=== PATIENT | female | born 1985 | race Caucasian/White ===

== ENCOUNTER → 2017-01-13 | Outpatient (CLI) | payer OTHER ==
--- NOTE | 2017-01-14 12:00 | US ---
EXAMINATION TYPE: US OB >= 14 wk fetus DATE OF EXAM: 01/13/2017 4:52 PM COMPARISON: None CLINICAL HISTORY: Z34.8Encounter for supervision of normal Dates, no previous ultrasound wi th this TECHNIQUE: Transabdominal (TA) GESTATIONAL AGE / DATING Dates by LMP: (19 weeks/1 days) EDC: 06/08/2017 Dates by Current Scan: (17 weeks/0 days) EDC: 06/23/2017 SURVEY IUP: Single PLACENTA: Anterior PREVIA: No Previa EYDA: 12.3 cm Normal CERVICAL LENGTH (transabdominal: norm > 3.0cm): 3.8 cm BIOMETRY PRESENTATION: Vertex BPD: 3.5 cm 16 weeks / 6 days HC: 13.6 cm 17 weeks / 0 days AC: 11.6 cm 17 weeks / 3 days FL: 2.3 cm 16 weeks / 6 days ESTIMATED WEIGHT IN GRAMS: 181.2 grams ESTIMATED WEIGHT IN LBS/OZS: 0 lbs. 6 oz. HC/AC: 1.2 FL/AC: 19.5 HEART RATE: 149 bpm RHYTHM: Normal Live single IUP measuring 17 weeks 0 days. IMPRESSION: Single viable intrauterine corresponding to ultrasound age 17 weeks 0 days with estimated d ate of delivery June, limited survey
== END | disposition home or self-care (01) ==
LOC: RADUSWWP 16:21
PROVIDERS: ATTEND Obstetrics & Gynecology
DX: Z34.02 Encounter for supervision of normal first pregnancy, second trimester (principal); Z3A.17 17 weeks gestation of pregnancy
CPT/HCPCS: 76805

== ENCOUNTER → 2017-03-03 | Outpatient (CLI) | payer OTHER ==
--- NOTE | 2017-02-18 14:10 | US ---
EXAMINATION TYPE: US OB anatomy transabd DATE OF EXAM: 02/17/2017 4:25 PM COMPARISON: Previous study dated 01/13/2017. HISTORY: Z36 ENCOUNTER FOR ANTEN ATE SCREENING OF MOTHER Anatomy Scan TECHNIQUE: Transabdominal (TA) EXAM MEASUREMENTS: GESTATIONAL AGE / DATING Physician Established: (22 weeks/0 days) EDC: 06/23/2017 Dates by LMP: Unknown Dates by First Scan: (22 weeks/0 days) EDC: 06/23/2017 Dates by Current Scan for: (21 weeks/2 days) EDC: 06/28/2017 SURVEY IUP: Single PLACENTA: Anterior PREVIA: No previa EYAD: 14.3 cm Normal CERVICAL LENGTH (transabdominal: norm > 3.0cm): 4.3 cm BIOMETRY PRESENTATION: Vertex BPD: 5.1 cm 21 weeks / 3 days HC: 19.4 cm 21 weeks / 4 days AC: 16.1 cm 21 weeks / 1 days FL: 3.7 cm 21 weeks / 6 days ESTIMATED WEIGHT IN GRAMS: 430 grams ESTIMATED WEIGHT IN LBS/OZS: 0 lbs. 15 oz. WEIGHT PERCENTAGE BASED ON ESTABLISHED DATE: 21.8 % HC/AC: 1.21 Normal FL/AC: 23 Abnormal HEART RATE: 161 bpm RHYTHM: Normal ANATOMY SEEN (within normal limits): * Lateral Vent (< 1 cm) 0.4 cm * Cisterna Magna (< 1.1 cm) 0.3 cm * Nuchal Fold (< 0.6 cm) 0.3 cm * Cerebellum (varies with age) 2.2 cm Choroid Plexus (bilateral) Midline Falx Cavus Septi Pellucidi Four Chamber Heart Outflow tracts: LVOT/RVOT Stomach Situs Nose / Lips Diaphragm Kidneys (bilateral) Bladder Cord Insert Three Vessel Cord Arms (bilateral) Legs (bilateral) ANATOMY NOT SEEN: Longitudinal Spine - Fetus Spine Down Transverse Spine - Fetus Spine Down Pt coming for OB callback on March 03 at 11:00 for spine images [place] 2nd tech Single, viable IUP, Growth parameters wnl, No abnormality seen at this time IMPRESSION: HUIZAR FETUS PRESENT IN A VERTEX LIE WITH A GESTATIONAL AGE OF 21 WEEKS 2 DAYS +/- 2 WEEKS. ESTIMA TANIA DATE OF CONFINEMENT BASED ON THIS EXAMINATION IS 06/28/2017.
--- NOTE | 2017-03-03 12:06 | US ---
EXAMINATION TYPE: US OB Call Back DATE OF EXAM: 03/03/2017 COMPARISON: NONE CLINICAL HISTORY: Z34.8Encounter for supervision of normal . GESTATIONAL AGE / DATING Dates by Initial Survey Scan: (24 weeks/0 days) EDC: 06/23/17 HEART RATE: 157 bpm RHYTHM: Normal ANATOMY SEEN (second anatomic survey look): Longitudinal Spine: WNL Transverse Spine: WNL IMPRESSION: LIMITED EXAMINATION TO ASSESS THE SPINE DEMONSTRATING NO SPINAL ABNORMALITY.
== END | disposition home or self-care (01) ==
LOC: RADUSWWP 02-17 15:50
PROVIDERS: ATTEND Obstetrics & Gynecology
DX: Z36 Encounter for antenatal screening of mother (principal); Z3A.21 21 weeks gestation of pregnancy
CPT/HCPCS: 76811

== ENCOUNTER 2017-04-29 18:20 | Emergency (ER) | payer OTHER ==
[2017-04-29 18:34] VITALS: BP 162/78; PULSE 73; RESP 18; TEMP 98
== END 2017-04-29 19:03 | disposition home or self-care (01) ==
LOC: EC 18:20
DX: Z02.9 Encounter for administrative examinations, unspecified (principal)

== ENCOUNTER → 2017-05-16 | Outpatient (CLI) | payer OTHER ==
--- NOTE | 2017-05-16 13:07 | US ---
EXAMINATION TYPE: US OB >= 14 wk fetus DATE OF EXAM: 05/16/2017 COMPARISON: US CLINICAL HISTORY: O99.213 Obesity Complications In PregnancyLGA, 4, para 3, miscarriage 1 TECHNIQUE: Transabdominal (TA) GESTATIONAL AGE / DATING Physician Established: (34 weeks/4 days) EDC: 06/23/2017 Dates by LMP: Unknown Dates by First Scan: (34 weeks/4 days) EDC: 06/23/2017 Dates by Current Scan: (34 weeks/4 days) EDC: 06/23/2017 SURVEY IUP: Single PLACENTA: Anterior, multiple hypoechoic areas throughout placenta with largest measuring 2.8cm PREVIA: No Previa EYAD: 13.3 cm Normal CERVICAL LENGTH (transabdominal: norm > 3.0cm): 3.4 cm BIOMETRY PRESENTATION: Vertex BPD: 8.6 cm 34 weeks / 3 days HC: 31.1 cm 34 weeks / 6 days AC: 30.7 cm 34 weeks / 5 days FL: 6.9 cm 35 weeks / 2 days ESTIMATED WEIGHT IN GRAMS: 2529 grams ESTIMATED WEIGHT IN LBS/OZS: 5 lbs. 9 oz. WEIGHT PERCENTAGE BASED ON ESTABLISHED DATES: 53% HC/AC: 1.01 Normal FL/AC: 22.38 Normal HEART RATE: 141 bpm RHYTHM: Normal Viable single IUP measuring 34 weeks 4 days with a heart rate of 141bpm and an estimated delivery katerin e of 06/23/2017. IMPRESSION: Single viable intrauterine .
== END | disposition home or self-care (01) ==
LOC: RADUSWWP 12:24
PROVIDERS: ATTEND Obstetrics & Gynecology
DX: O99.213 Obesity complicating pregnancy, third trimester (principal); Z3A.34 34 weeks gestation of pregnancy
CPT/HCPCS: 76805

== ENCOUNTER 2017-12-15 21:03 | Emergency (ER) | payer OTHER ==
[2017-12-15 21:11] VITALS: RESP 18
[2017-12-15] MEDS ORDERED: METOCLOPRAMIDE 5 MG/ML 2 ML VIAL IVP STA (21:44)
[2017-12-15] MEDS ORDERED: SODIUM CHLORIDE 0.9% 1,000 ML IV STA ×2 (21:44)
[2017-12-15] MEDS ORDERED: diphenhydrAMINE 50 MG/ML 1 ML VIAL IVP STA (21:44)
--- NOTE | 2017-12-15 21:58 | ED ---
Abdominal Pain HPI - General Chief Complaint: Abdominal Pain Stated Complaint: and Abd pain Time Seen by Provider: 12/15/17 21:19 Source: patient, RN notes reviewed, old records reviewed Mode of arrival: ambulatory Limitations: no limitations - History of Present Illness Initial Comments: This patient is a 32-year-old female presents emergency Department chief complaint of left lower quadrant abdominal pain started today. Patient reports that she is currently 14 weeks . This is her fifth . She has not had any care to this point she has been taking some vitamins over. She states she is following up with Dr. Lewis in her appointment is in December. Patient states that she has 3 living children. She reports that her last child was born 6 months ago. Patient states that she's had no fever or chills. No nausea vomiting or diarrhea. She states that the pain just mainly in the left lower quadrant. No ultrasound or any other testing of been done for this . Patient states that she also has a mild headache at this time. - Related Data Home Medications Medication Instructions Recorded Confirmed Pnv No.95/Ferrous Fum/Folic AC 1 tab PO DAILY 12/15/17 12/15/17 [ Multivitamin Tablet] Allergies Allergy/AdvReac Type Severity Reaction Status Date / Time azithromycin Allergy Rash/Hives Verified 12/15/17 21:49 neomycin Allergy Rash/Hives Verified 12/15/17 21:49 Review of Systems ROS Statement: Those systems with pertinent positive or pertinent negative responses have been documented in the HPI. ROS Other: All systems not noted in ROS Statement are negative. Past Medical History Past Medical History: Asthma History of Any Multi-Drug Resistant Organisms: None Reported Past Surgical History: Tonsillectomy Additional Past Surgical History / Comment(s): tubes in ear, left ankle surgery , right foot Past Psychological History: Anxiety, Depression Smoking Status: Current every day smoker Past Alcohol Use History: Occasional Past Drug Use History: None Reported General Exam - General Exam Comments Initial Comments: Alert and well appearing 32 year old female, no distress. Limitations: no limitations General appearance: alert, in no apparent distress Head exam: Present: atraumatic, normocephalic, normal inspection Eye exam: Present: normal appearance, PERRL, EOMI. Absent: scleral icterus, conjunctival injection, periorbital swelling ENT exam: Present: normal exam, mucous membranes moist Neck exam: Present: normal inspection. Absent: tenderness, meningismus, lymphadenopathy Respiratory exam: Present: normal lung sounds bilaterally. Absent: respiratory distress, wheezes, rales, rhonchi, stridor Cardiovascular Exam: Present: regular rate, normal rhythm, normal heart sounds. Absent: systolic murmur, diastolic murmur, rubs, gallop, clicks GI/Abdominal exam: Present: soft, normal bowel sounds. Absent: distended, tenderness, guarding, rebound, rigid Psychiatric exam: Present: normal affect, normal mood Skin exam: Present: warm, dry, intact, normal color. Absent: rash Course Vital Signs 12/15/17 12/15/17 21:07 23:54 Temperature 98.3 F 98.4 F Pulse Rate 97 88 Respiratory 18 18 Rate Blood Pressure 134/73 130/71 O2 Sat by Pulse 99 100 Oximetry Medical Decision Making - Medical Decision Making This patient is a 32-year-old female presents emergency Department chief complaint of left lower quadrant abdominal pain started today. Patient reports that she is currently 14 weeks . This is her fifth . Patient is planning to see Dr. Lewis. Patient given IV fluids and labs obtained. Labs show no abnormalities. US shows an IUP measuring 17 weeks. No vaginal bleeding or fluid leaking. Patient will be discharged with follow up instructions. Pain is likely related to ligament stretching. - Lab Data Result diagrams: 12/15/17 22:06 12/15/17 22:06 Lab Results 12/15/17 12/15/17 12/15/17 Range/Units 22:00 22:06 22:06 WBC (3.8-10.6) k/uL RBC (3.80-5.40) m/uL Hgb (11.4-16.0) gm/dL Hct (34.0-46.0) % MCV (80.0-100.0) fL MCH (25.0-35.0) pg MCHC (31.0-37.0) g/dL RDW (11.5-15.5) % Plt Count (150-450) k/uL Neutrophils % % Lymphocytes % % Monocytes % % Eosinophils % % Basophils % % Neutrophils # (1.3-7.7) k/uL Lymphocytes # (1.0-4.8) k/uL Monocytes # (0-1.0) k/uL Eosinophils # (0-0.7) k/uL Basophils # (0-0.2) k/uL Anisocytosis Microcytosis Sodium 136 L (137-145) mmol/L Potassium 4.0 (3.5-5.1) mmol/L Chloride 102 (98-107) mmol/L Carbon Dioxide 25 (22-30) mmol/L Anion Gap 9 mmol/L BUN 10 (7-17) mg/dL Creatinine 0.60 (0.52-1.04) mg/dL Est GFR (CKD-EPI)AfAm >90 (>60 ml/min/1.73 sqM) Est GFR (CKD-EPI)NonAf >90 (>60 ml/min/1.73 sqM) Glucose 121 H (74-99) mg/dL Calcium 9.7 (8.4-10.2) mg/dL Total Bilirubin 0.3 (0.2-1.3) mg/dL AST 15 (14-36) U/L ALT 17 (9-52) U/L Alkaline Phosphatase 86 (38-126) U/L Total Protein 7.3 (6.3-8.2) g/dL Albumin 4.0 (3.5-5.0) g/dL Amylase 46 (30-110) U/L Lipase 43 (23-300) U/L Urine Color Light Yellow Urine Appearance Clear (Clear) Urine pH 6.5 (5.0-8.0) Ur Specific [place] 1.007 (1.001-1.035) Urine Protein Negative (Negative) Urine Glucose (UA) Negative (Negative) Urine Ketones Negative (Negative) Urine Blood Negative (Negative) Urine Nitrite Negative (Negative) Urine Bilirubin Negative (Negative) Urine Urobilinogen <2.0 (<2.0) mg/dL Ur Leukocyte Esterase Negative (Negative) Blood Type O Positive Blood Type Recheck No 12/15/17 Range/Units 22:06 WBC 12.9 H (3.8-10.6) k/uL RBC 4.40 (3.80-5.40) m/uL Hgb 11.1 L (11.4-16.0) gm/dL Hct 34.3 (34.0-46.0) % MCV 77.8 L (80.0-100.0) fL MCH 25.3 (25.0-35.0) pg MCHC 32.5 (31.0-37.0) g/dL RDW 19.9 H (11.5-15.5) % Plt Count 431 (150-450) k/uL Neutrophils % 76 % Lymphocytes % 18 % Monocytes % 4 % Eosinophils % 1 % Basophils % 0 % Neutrophils # 9.8 H (1.3-7.7) k/uL Lymphocytes # 2.4 (1.0-4.8) k/uL Monocytes # 0.5 (0-1.0) k/uL Eosinophils # 0.1 (0-0.7) k/uL Basophils # 0.0 (0-0.2) k/uL Anisocytosis Slight Microcytosis Moderate Sodium (137-145) mmol/L Potassium (3.5-5.1) mmol/L Chloride (98-107) mmol/L Carbon Dioxide (22-30) mmol/L Anion Gap mmol/L BUN (7-17) mg/dL Creatinine (0.52-1.04) mg/dL Est GFR (CKD-EPI)AfAm (>60 ml/min/1.73 sqM) Est GFR (CKD-EPI)NonAf (>60 ml/min/1.73 sqM) Glucose (74-99) mg/dL Calcium (8.4-10.2) mg/dL Total Bilirubin (0.2-1.3) mg/dL AST (14-36) U/L ALT (9-52) U/L Alkaline Phosphatase (38-126) U/L Total Protein (6.3-8.2) g/dL Albumin (3.5-5.0) g/dL Amylase (30-110) U/L Lipase (23-300) U/L Urine Color Urine Appearance (Clear) Urine pH (5.0-8.0) Ur Specific [place] (1.001-1.035) Urine Protein (Negative) Urine Glucose (UA) (Negative) Urine Ketones (Negative) Urine Blood (Negative) Urine Nitrite (Negative) Urine Bilirubin (Negative) Urine Urobilinogen (<2.0) mg/dL Ur Leukocyte Esterase (Negative) Blood Type Blood Type Recheck - Radiology Data Radiology results: report reviewed US shows gestational age of 17 weeks and 1 day. No complicating process. Disposition Clinical Impression: Abdominal pain affecting , 17 weeks gestation of Disposition: HOME SELF-CARE Condition: Good Instructions: Abdominal Pain in (ED) Additional Instructions: Patient has a take Tylenol for pain. Rest, increase fluid intake. Follow-up with Dr. Lewis. Return to emergency department if any alarming signs or symptoms occur. Referrals: Belkis Wright MD [Primary Care Provider] - 1-2 days Myrtle Lewis MD [STAFF PHYSICIAN] - 1-2 days Time of Disposition: 23:17
[2017-12-15 22:04] LABS: Appearance,Urine Clear (Clear); Bilirubin,Urine Negative (Negative); Blood,Urine Negative (Negative); Color,Urine Light Yellow; Glucose,Urine (UA) Negative (Negative); Ketones,Urine Negative (Negative); Leukocyte Esterase,Urine Negative (Negative); Nitrite,Urine Negative (Negative); PH, Urine 6.5 (5.0-8.0); Protein,Urine Negative (Negative); Specific Gravity,Urine 1.007 (1.001-1.035); Urobilinogen,Urine <2.0 mg/dL (<2.0)
[2017-12-15 22:15] LABS: Anisocytosis Slight; Basophils % (A) 0 %; Eosinophils # (A) 0.1 k/uL (0-0.7); Eosinophils % (A) 1 %; HCT 34.3 % (34.0-46.0); HGB 11.1 gm/dL (11.4-16.0); Lymphocytes # (A) 2.4 k/uL (1.0-4.8); Lymphocytes % (A) 18 %; MCH 25.3 pg (25.0-35.0); MCHC 32.5 g/dL (31.0-37.0); MCV 77.8 fL (80.0-100.0); Mean Platelet Volume 6.8; Microcytosis Moderate; Monocytes # (A) 0.5 k/uL (0-1.0); Monocytes % (A) 4 %; Neutrophils # (A) 9.8 k/uL (1.3-7.7); Neutrophils % (A) 76 %; Platelet Count 431 k/uL (150-450); RDW 19.9 % (11.5-15.5); WBC 12.9 k/uL (3.8-10.6)
[2017-12-15 22:32] LABS: ALT 17 U/L (9-52); AST 15 U/L (14-36); Alkaline Phosphatase 86 U/L (38-126); Amylase 46 U/L (30-110); Anion Gap 9 mmol/L; Blood Urea Nitrogen 10 mg/dL (7-17); Calcium 9.7 mg/dL (8.4-10.2); Carbon Dioxide 25 mmol/L (22-30); Chloride 102 mmol/L (98-107); Glucose 121 mg/dL (74-99); Lipase 43 U/L (23-300); Sodium 136 mmol/L (137-145); Total Bilirubin 0.3 mg/dL (0.2-1.3); Total Protein 7.3 g/dL (6.3-8.2)
--- NOTE | 2017-12-15 22:51 | US ---
EXAMINATION TYPE: US OB >= 14 wk fetus DATE OF EXAM: 12/15/2017 COMPARISON: No previous with this CLINICAL HISTORY: Pain TECHNIQUE: Transabdominal (TA) GESTATIONAL AGE / DATING Physician Established: Not yet established Dates by LMP: (15 weeks/4 days) EDC: 06/04/18 Dates by First Scan: No previous this is first scan Dates by Current Scan: (17 weeks/1 days) EDC: 05/24/18 Beta HCG (if available): Not available at this time SURVEY IUP: Single PLACENTA: Posterior PREVIA: No Previa EYAD: 14.6 cm CERVICAL LENGTH (transabdominal: norm > 3.0cm): 3.5 cm BIOMETRY PRESENTATION: Variable BPD: 3.6 cm 17 weeks / 1 days HC: 13.6 cm 17 weeks / 0 days AC: 11.3 cm 17 weeks / 1 days FL: 2.4 cm 17 weeks / 1 days ESTIMATED WEIGHT IN GRAMS: 182 grams ESTIMATED WEIGHT IN LBS/OZ: lbs. 6 oz. WEIGHT PERCENTAGE BASED ON ESTABLISHED DATES: 1st scan, dates probably inaccurate HC/AC: 1.2 FL/AC: 21.1 HEART RATE: 172 bpm RHYTHM: Normal MATERNAL WALL MEASUREMENT: 3.8 cm from skin to anterior uterine wall (if exam limited due to body hab itus). IMPRESSION: The ultrasound gestational age is 17 weeks and 1 day. I see no complicating process.
[2017-12-15 23:55] VITALS: BP 130/71; PULSE 88; TEMP 98.4
== END 2017-12-15 23:55 | disposition home or self-care (01) ==
LOC: EC 21:03
DX: O26.892 Other specified pregnancy related conditions, second trimester (principal); R10.32 Left lower quadrant pain; R51 Headache; O99.332 Smoking (tobacco) complicating pregnancy, second trimester; F17.200 Nicotine dependence, unspecified, uncomplicated; Z3A.17 17 weeks gestation of pregnancy; Z88.1 Allergy status to other antibiotic agents
CPT/HCPCS: 36415; 86900; 86901; 80053; 82150; 83690; 85025; 81003; 76805; 99284; 96374; 96375; 96361 ×2; J1200; J2765

== ENCOUNTER 2018-04-05 00:04 | Outpatient (CLI) | payer OTHER ==
[2018-04-05 00:58] VITALS: BP 115/71; PULSE 71; RESP 20; TEMP 96.4
--- NOTE | 2018-04-13 08:35 | P.MSEPDOC ---
Presenting Problems - Arrival Data Date of Arrival on Unit: 04/05/18 Time of Arrival on Unit: 00:04 Mode of Transport: Wheelchair - Complaint OB-Reason for Admission/Chief Complaint: Rule Out PROM Comment: Pt DOM clear fluid x 2 days and bloody stools x 2 days Medical History - Information : 5 Para: 3 Term: 3 : 0 Abortions: Spontaneous or Elective: 1 Number of Living Children: 3 - Gestational Age Gestational Age by LEO (wks/days): 33 Weeks and 0 Days - History Complications: No Care, Smoker Review of Systems - Review of Systems Constitutional: No problems Breast: No problems ENT: No problems Cardiovascular: No problems Respiratory: No problems Gastrointestinal: Diarrhea Genitourinary: No problems Musculoskeletal: No problems Neurological: No problems Skin: No problems Vital Signs - Temperature Temperature: 96.4 F Temperature Source: Temporal Artery Scan - Pulse Right Supine Brachial Pulse Rate: 71 Pulse Assessment Method: Automatic Cuff - Respirations Respiratory Rate: 20 Oxygen Delivery Method: Room Air - Blood Pressure Right Arm Supine Blood Pressure: 115/71 Blood Pressure Mean: 85 Blood Pressure Source: Automatic Cuff Medical Screen Scoring (Pre) - Cervical Exam Dilation: Exam Deferred Effacement: Exam Deferred - Uterine Contractions Frequency: > 5 minutes apart = 1 - Maternal Vital Signs Maternal Temperature: N/A Maternal Blood Pressure: N/A Signs of Preeclampsia: N/A - Pain Assessment Pain Location and Character: Back Pain Scale Used: Numeric (1 - 10) Pain Intensity: 6 Pain Management Goal: 6 Pain Description: Sore Pain Frequency: Rarely Pain Duration Units: Days Pain Behavior: None Exhibited Effects of Pain: - Total Score Total Score (Pre): 1 - Level of Risk Level of Risk: Low (0-5) Physician Notification (Pre) - Physician Notified Physician Notified Date: 04/05/18 Physician Notified Time: 00:48 Physician/Practitioner Notifed:: Dr Barraza Spoke With: Dr Barraza New Order Received: Yes - Notification Comment Comment: Amnisure negative, Pt does not want to go to EC for bloody diarrhea, wants to go home Disposition - Disposition OB Disposition: Discharge to home Transferred to:: Home Discharge Date: 04/05/18 Discharge Time: 00:50 I agree with the RN Medical Screening Exam: Yes Risk & Benefit of care provided described in d/c instruction: Yes Diagnosis: 33 WEEKS GESTATION OF
== END 2018-04-05 00:50 | disposition home or self-care (01) ==
LOC: FBPOP 00:04
PROVIDERS: ATTEND Obstetrics & Gynecology
DX: O99.89 Other specified diseases and conditions complicating pregnancy, childbirth and the puerperium (principal); R19.7 Diarrhea, unspecified; O99.333 Smoking (tobacco) complicating pregnancy, third trimester; Z3A.33 33 weeks gestation of pregnancy
CPT/HCPCS: 59025; 84112; G0463; 99213

== ENCOUNTER 2018-05-12 23:42 | Outpatient (CLI) | payer OTHER ==
[2018-05-13 00:47] VITALS: PULSE 93; RESP 15; TEMP 96.8
[2018-05-13 00:48] LABS: Anisocytosis Slight; Basophils # (A) 0.1 k/uL (0-0.2); Basophils % (A) 0 %; Eosinophils # (A) 0.2 k/uL (0-0.7); Eosinophils % (A) 1 %; HCT 33.4 % (34.0-46.0); HGB 10.9 gm/dL (11.4-16.0); Lymphocytes # (A) 2.1 k/uL (1.0-4.8); Lymphocytes % (A) 13 %; MCH 27.9 pg (25.0-35.0); MCHC 32.6 g/dL (31.0-37.0); MCV 85.4 fL (80.0-100.0); Mean Platelet Volume 6.7; Monocytes # (A) 0.9 k/uL (0-1.0); Monocytes % (A) 5 %; Neutrophils # (A) 12.4 k/uL (1.3-7.7); Neutrophils % (A) 79 %; Platelet Count 457 k/uL (150-450); RBC 3.91 m/uL (3.80-5.40); RDW 16.1 % (11.5-15.5); WBC 15.8 k/uL (3.8-10.6)
[2018-05-13 00:50] LABS: Appearance,Urine Cloudy (Clear); Bilirubin,Urine Negative (Negative); Blood,Urine Negative (Negative); Color,Urine Yellow; Glucose,Urine (UA) Negative (Negative); Ketones,Urine Negative (Negative); Leukocyte Esterase,Urine Moderate (Negative); Mucus,Urine Occasional /hpf; Nitrite,Urine Negative (Negative); PH, Urine 6.5 (5.0-8.0); Protein,Urine Trace (Negative); RBC,Urine 1 /hpf (0-5); Specific Gravity,Urine 1.018 (1.001-1.035); Squamous Epithelial Cell,Urine 12 /hpf (0-4); WBC,Urine 9 /hpf (0-5)
[2018-05-13 00:57] LABS: Amphetamine Screen,Urine Not Detected (NotDetected); Barbiturate Screen,Urine Not Detected (NotDetected); Benzodiazepines Screen,Urine Not Detected (NotDetected); Cocaine Screen,Urine Not Detected (NotDetected); Methadone Screen, Urine Not Detected (NotDetected); Opiate Screen,Urine Not Detected (NotDetected); Oxycodone Screen, Urine Not Detected (NotDetected); Phencyclidine Screen,Urine Not Detected (NotDetected); Tricyclic Antidepressant,Urine Not Detected (NotDetected); Urn Cannabinoid Scrn Detected (NotDetected)
[2018-05-13 00:58] LABS: Uric Acid 5.9 mg/dL (3.7-7.4)
[2018-05-13 01:00] LABS: Partial Thromboplastin Time 22.1 sec (22.0-30.0); Prothrombin Time 9.6 sec (9.0-12.0)
[2018-05-13 01:30] VITALS: BP 124/77
[2018-05-14 11:25] LABS: HIV AB P24 Non-Reactive (Non-Reactive); HIV P24 AG Non-Reactive (Non-Reactive)
--- NOTE | 2018-05-15 08:26 | P.MSEPDOC ---
Presenting Problems - Arrival Data Date of Arrival on Unit: 05/12/18 Time of Arrival on Unit: 23:42 Mode of Transport: Wheelchair - Complaint OB-Reason for Admission/Chief Complaint: Acute Nausea/Vomiting Medical History - Information : 5 Para: 3 Term: 3 : 0 Abortions: Spontaneous or Elective: 1 Number of Living Children: 3 - Gestational Age Gestational Age by LEO (wks/days): 38 Weeks and 3 Days - History Complications: No Care, Prior , Smoker, Other Comment: Patient states she has a history of preeclampsia with all of her previous pregnancies and a history of hemorrhage with her last delivery and an ICU stay of 3 days. Review of Systems - Review of Systems Constitutional: No problems Breast: No problems ENT: No problems Cardiovascular: No problems Respiratory: No problems Gastrointestinal: No problems Genitourinary: No problems Musculoskeletal: No problems Neurological: No problems Skin: No problems Vital Signs - Temperature Temperature: 96.8 F Temperature Source: Temporal Artery Scan - Pulse Pulse Oximetery Pulse Rate: 93 Pulse Assessment Method: Pulse Oximetry - Respirations Respiratory Rate: 15 Oxygen Delivery Method: Room Air O2 Sat by Pulse Oximetry: 100 - Blood Pressure Right Arm Blood Pressure: 124/77 Blood Pressure Mean: 92 Blood Pressure Source: Automatic Cuff Medical Screen Scoring (Pre) - Cervical Exam Dilation: Exam Deferred Effacement: Exam Deferred - Uterine Contractions Frequency: > 5 minutes apart = 1 Duration: N/A Intensity: N/A - Maternal Vital Signs Maternal Temperature: N/A Maternal Blood Pressure: Diastolic > 89 = 1 Signs of Preeclampsia: Nausea/Vomiting = 1 Maternal Respirations: N/A - Pain Assessment Pain Location and Character: Abdomen Pain Scale Used: Numeric (1 - 10) Pain Intensity: 4 Pain Management Goal: 2 Pain Description: *Acute, Aching Pain Radiation Location: none Pain Frequency: Intermittent Pain Duration: 2 Pain Duration Units: Hours Pain Behavior: None Exhibited Pain Aggravating Factors: None - Maternal Trauma Maternal Trauma: N/A - Assessment Baseline FHR: 130 Heart Rate - NICHD Category: Category I (Normal) = 0 NST: Reactive Position: N/A Station: N/A - Total Score Total Score (Pre): 3 - Level of Risk Level of Risk: Low (0-5) Physician Notification (Pre) - Physician Notified Physician Notified Date: 05/13/18 Physician Notified Time: 00:17 Physician/Practitioner Notifed:: Dr Moo Cm Order Received: Yes Medical Screen Scoring (Post) - Cervical Exam Dilation: Exam Deferred Effacement: Exam Deferred Membranes: Intact - Uterine Contractions Frequency: > 5 minutes apart = 1 Duration: N/A Intensity: N/A - Maternal Vital Signs Maternal Temperature: N/A Maternal Blood Pressure: N/A Signs of Preeclampsia: Nausea/Vomiting = 1 Maternal Respirations: N/A - Pain Assessment Pain Scale Used: Numeric (1 - 10) Pain Intensity: 0 - Maternal Trauma Maternal Trauma: N/A - Assessment Heart Rate: 130 Heart Rate - NICHD Category: Category I (Normal) = 0 NST: Reactive Position: N/A Station: N/A - Total Score Total Score (Post): 2 - Post Treatment Level of Risk Post Treatment Level of Risk: Low (0-5) Physician Notification (Post) - Physician Notified Physician Notified Date: 05/13/18 Physician Notified Time: 01:15 Physician/Practitioner Notified:: Dr Moo Cm Order Received: Yes Disposition - Disposition OB Disposition: Discharge to home Discharge Date: 05/13/18 Discharge Time: 01:30 I agree with the RN Medical Screening Exam: Yes Risk & Benefit of care provided described in d/c instruction: Yes Diagnosis: VOMITING OF , UNSPECIFIED
== END 2018-05-13 01:30 | disposition home or self-care (01) ==
LOC: FBPOP 23:42
PROVIDERS: ATTEND Obstetrics & Gynecology
DX: O21.2 Late vomiting of pregnancy (principal); Z3A.38 38 weeks gestation of pregnancy
CPT/HCPCS: 59025; 86900; 86901; 86762; 82570; 84156; 83615; 82947; 84450; 84460; 84550; 85025; 85610; 85730; 86850; 87340; 81001; 80306; 87390; G0463; 99215

== ENCOUNTER 2018-05-13 08:46 | Outpatient (CLI) | payer OTHER ==
[2018-05-13 09:29] VITALS: BP 120/84; PULSE 98; RESP 18; TEMP 98.2
--- NOTE | 2018-05-15 08:28 | P.MSEPDOC ---
Presenting Problems - Arrival Data Date of Arrival on Unit: 05/13/18 Time of Arrival on Unit: 08:42 Mode of Transport: Wheelchair - Complaint OB-Reason for Admission/Chief Complaint: Acute Nausea/Vomiting Medical History - Information : 5 Para: 3 Term: 3 : 0 Abortions: Spontaneous or Elective: 1 Number of Living Children: 3 - Gestational Age Gestational Age by LEO (wks/days): 38 Weeks and 3 Days - History Complications: No Care, Prior Review of Systems - Review of Systems Constitutional: No problems Breast: No problems ENT: No problems Cardiovascular: No problems Respiratory: No problems Gastrointestinal: No problems Genitourinary: No problems Musculoskeletal: No problems Neurological: No problems Skin: No problems Vital Signs - Temperature Temperature: 98.2 F Temperature Source: Oral - Pulse Right Brachial Pulse Rate: 98 Pulse Assessment Method: Automatic Cuff - Respirations Respiratory Rate: 18 Oxygen Delivery Method: Room Air O2 Sat by Pulse Oximetry: 94 - Blood Pressure Right Arm Blood Pressure: 120/84 Blood Pressure Mean: 96 Blood Pressure Source: Automatic Cuff Medical Screen Scoring (Pre) - Uterine Contractions Frequency: N/A Duration: N/A Intensity: N/A - Maternal Vital Signs Maternal Temperature: N/A Maternal Blood Pressure: N/A Signs of Preeclampsia: N/A Maternal Respirations: N/A - Pain Assessment Pain Scale Used: Numeric (1 - 10) Pain Intensity: 0 Pain Behavior: None Exhibited - Maternal Trauma Maternal Trauma: N/A - Assessment Baseline FHR: 145 Heart Rate - NICHD Category: Category I (Normal) = 0 NST: Reactive Position: N/A - Total Score Total Score (Pre): 0 - Level of Risk Level of Risk: Low (0-5) Physician Notification (Pre) - Physician Notified Physician Notified Date: 05/13/18 Physician Notified Time: 09:08 Physician/Practitioner Notifed:: Moo Spoke With: Moo New Order Received: No - Notification Comment Comment: pt may be discharged home, enc to increase fluids with small sips, pt to return to triage 18 for repeat NST Medical Screen Scoring (Post) - Uterine Contractions Frequency: N/A - Maternal Vital Signs Maternal Temperature: N/A Signs of Preeclampsia: N/A - Pain Assessment Pain Scale Used: Numeric (1 - 10) Pain Intensity: 0 Pain Management Goal: 0 Pain Behavior: None Exhibited - Maternal Trauma Maternal Trauma: N/A - Assessment Heart Rate: 145 Heart Rate - NICHD Category: Category I (Normal) = 0 NST: Reactive Position: N/A - Total Score Total Score (Post): 0 - Post Treatment Level of Risk Post Treatment Level of Risk: Low (0-5) Physician Notification (Post) - Physician Notified Physician Notified Date: 05/13/18 Physician Notified Time: 09:08 Physician/Practitioner Notified:: Moo Spoke With: Moo New Order Received: No - Notification Comment Comment: pt home, pt to return on 05-16-18 for repeat NST, s/s of pre-eclampsia reviewed with ptzen. Disposition - Disposition OB Disposition: Discharge to home Discharge Date: 05/13/18 Discharge Time: 09:20 I agree with the RN Medical Screening Exam: Yes Risk & Benefit of care provided described in d/c instruction: Yes Diagnosis: VOMITING OF , UNSPECIFIED
== END 2018-05-13 09:20 | disposition home or self-care (01) ==
LOC: FBPOP 08:46
PROVIDERS: ATTEND Obstetrics & Gynecology
DX: O21.2 Late vomiting of pregnancy (principal); Z3A.38 38 weeks gestation of pregnancy
CPT/HCPCS: 59025; G0463; 99214

== ENCOUNTER 2018-05-15 11:26 | Outpatient (CLI) | payer OTHER ==
[2018-05-15 13:49] VITALS: BP 128/78; PULSE 83; RESP 16; TEMP 98
--- NOTE | 2018-06-14 02:23 | P.MSEPDOC ---
Presenting Problems - Arrival Data Date of Arrival on Unit: 05/15/18 Time of Arrival on Unit: 11:29 Mode of Transport: Ambulatory Medical History - Information : 5 Para: 3 Term: 3 : 0 Abortions: Spontaneous or Elective: 1 Number of Living Children: 3 - Gestational Age Gestational Age by LEO (wks/days): 39 Weeks and 6 Days Vital Signs - Temperature Temperature: 98 F Temperature Source: Oral - Pulse Right Brachial Pulse Rate: 83 Pulse Assessment Method: Automatic Cuff - Respirations Respiratory Rate: 16 Oxygen Delivery Method: Room Air O2 Sat by Pulse Oximetry: 96 - Blood Pressure Right Arm Sitting Blood Pressure: 128/78 Blood Pressure Mean: 94 Blood Pressure Source: Automatic Cuff Medical Screen Scoring (Post) - Cervical Exam Dilation: Exam Deferred Effacement: Exam Deferred Membranes: Intact - Uterine Contractions Frequency: N/A Duration: N/A Intensity: N/A - Maternal Vital Signs Maternal Temperature: N/A Maternal Blood Pressure: N/A Signs of Preeclampsia: N/A Maternal Respirations: N/A - Maternal Trauma Maternal Trauma: N/A - Assessment Heart Rate: 125 Heart Rate - NICHD Category: Category I (Normal) = 0 NST: Reactive Position: N/A Station: N/A - Total Score Total Score (Post): 0 - Post Treatment Level of Risk Post Treatment Level of Risk: N/A Physician Notification (Post) - Physician Notified Physician Notified Date: 05/15/18 Physician/Practitioner Notified:: Dr Cortés New Order Received: Yes - Notification Comment Comment: pt DOM and was here 3 days ago. pt has hx of pre-eclampsia and pp hemmorhage. pt was told to return today for an NST per Dr Cortés. reported a reactive NST, bp and pt denies s/s of pre-eclampsia at this time. orders received for pt to return on 05/17/18 for another NST per Dr Cortés. Disposition - Disposition OB Disposition: Triage, Discharge to home, Written follow up instructions reviewed Discharge Date: 05/15/18 Discharge Time: 12:30 I agree with the RN Medical Screening Exam: Yes Risk & Benefit of care provided described in d/c instruction: Yes Diagnosis: PATIENT'S NONCOMPLIANCE W OTH MEDICAL TREATMENT AND REGIMEN
== END 2018-05-15 12:30 | disposition home or self-care (01) ==
LOC: FBPOP 11:26
PROVIDERS: ATTEND Obstetrics & Gynecology
DX: Z91.19 Patient's noncompliance with other medical treatment and regimen (principal); Z3A.39 39 weeks gestation of pregnancy
CPT/HCPCS: 59025; G0463; 99213

== ENCOUNTER 2018-05-17 10:35 | Inpatient (IN) | payer OTHER ==
[2018-05-17 23:59] VITALS: BMI 51.4
[2018-05-18] MEDS ORDERED: LACTATED RINGERS 1,000 ML IV ONE (00:15)
[2018-05-18] MEDS ORDERED: ceFAZolin 3 GM in SODIUM CHLORIDE 0.9% 100 ML IVPB ONE (00:15)
[2018-05-18] MEDS ORDERED: CITRIC ACID-SODIUM CITRATE 15 ML CUP PO ONE (00:15)
[2018-05-18 00:37] LABS: ALT 37 U/L (9-52); AST 28 U/L (14-36); Blood Urea Nitrogen 7 mg/dL (7-17); LDH 478 U/L (313-618)
[2018-05-18 00:39] LABS: Partial Thromboplastin Time 22.6 sec (22.0-30.0); Prothrombin Time 9.7 sec (9.0-12.0)
--- NOTE | 2018-05-18 00:39 | P.HPOB ---
History of Present Illness H&P Date: 05/18/18 Chief Complaint: Intrauterine at term: Previous section 2: Suspected umer Schmitz is a 32-year-old at 39 weeks gestation who has had no care. Her last and delivery was in June [address] Valdovinos. At that time she apparently had severe preeclampsia that developed over a very short 1-2 day period and apparently became severe and she was on magnesium sulfate during her hospitalization. At that time her significant other reports that following the section she had hemorrhage for which she was admitted to the intensive care unit and he believe she got 4 units of blood. We will make every effort to try and get the medical records from [facility] tomorrow morning. She relates that at that time they had offered to do a tubal ligation but the patient refused but she is open to having her tubes tied at the section due to her significant high risk. She denies any other medical issues or problems and takes no other medications. She did not have any care so I do not have any specific labs from the and will plan to have those drawn tonight. She reports relates that she did contact Dr. Valdovinos following discovery that she was again and he informed her she was too high risk advised her to go to maternal medicine specialist but she was unable to do so. Therefore she received no care. Her past medical history has been otherwise unremarkable. I do suspect that she has some gestational hypertension. We'll repeat all of her preeclamptic labs as well as coag studies. She did have a noted minimal blood pressure elevation of 145/65 at presentation but apparently she just had a cigarette prior to coming up to labor and delivery. The remainder of her blood pressures so far this evening have been in the 130/70 and 120/65 range. Due to her history and no care the decision to have a more scheduled and controlled section has been made between myself and my partner and will move forward with a repeat section tomorrow giving us time to obtain all of the labs and have her optimized for surgery in morning or early afternoon. Should something change tonight we'll plan on repeat section tonight. All questions are answered for both she and her significant other and she is stable for discharge this time. From a preeclamptic standpoint , labs are pending. She denies any headache no epigastric pain and no visual changes. Deep tendon reflexes are 2+. Past surgical history 2 sections and 2 D&Cs including an emergent D&C with her last ALLERGIES to azithromycin which causes a rash Social history is significant for tobacco abuse and occasional marijuana use. She denies out call use Family history is noncontributory according to the patient Assessment intrauterine at term: 2 prior sections: Suspected gestational hypertension with history of severe preeclampsia: Likely family planning: No care Plan: Repeat section with possible bilateral partial salpingectomy Past Medical History Past Medical History: Asthma History of Any Multi-Drug Resistant Organisms: None Reported Past Surgical History: Tonsillectomy Additional Past Surgical History / Comment(s): tubes in ear, left ankle surgery , right foot Past Anesthesia/Blood Transfusion Reactions: No Reported Reaction Smoking Status: Current every day smoker - Past Family History Mother Family Medical History: No Reported History Medications and Allergies Home Medications Medication Instructions Recorded Confirmed Type Pnv No.95/Ferrous Fum/Folic AC 2 tab PO DAILY 12/15/17 05/17/18 History [ Multivitamin Tablet] Acetaminophen Tab [Tylenol Tab] 325 mg PO Q6H PRN 05/17/18 05/17/18 History Calcium Carbonate [Tums] 1,000 mg PO 5XD PRN 05/17/18 05/17/18 History Allergies Allergy/AdvReac Type Severity Reaction Status Date / Time azithromycin Allergy Rash/Hives Verified 05/12/18 23:58 neomycin Allergy Rash/Hives Verified 05/12/18 23:58 Exam Osteopathic Statement: *. No significant issues noted on an osteopathic structural exam other than those noted in the History and Physical/Consult. Vital Signs Temp Pulse Resp BP Pulse Ox 05/17/18 23:52 98.5 F 85 16 137/66 97 05/17/18 13:42 98.2 F 89 16 124/81 97 Intake and Output 05/17/18 05/17/18 05/18/18 14:59 22:59 06:59 Other: Weight 140.16 kg 140.16 kg - OBG Physical Exam Abdomen: Morbid obesity Abdomen: bowel sounds normal Uterus: normal size (Gravid uterus) Patient has a category 1 tracing with heart rate in the 130s to 140s
[2018-05-18 00:48] LABS: Basophils # (A) 0.1 k/uL (0-0.2); Basophils % (A) 1 %; Eosinophils # (A) 0.3 k/uL (0-0.7); Eosinophils % (A) 2 %; HCT 30.5 % (34.0-46.0); HGB 10.2 gm/dL (11.4-16.0); Lymphocytes # (A) 2.3 k/uL (1.0-4.8); Lymphocytes % (A) 16 %; MCH 28.5 pg (25.0-35.0); MCHC 33.6 g/dL (31.0-37.0); MCV 84.8 fL (80.0-100.0); Mean Platelet Volume 6.9; Monocytes # (A) 0.8 k/uL (0-1.0); Monocytes % (A) 5 %; Neutrophils % (A) 76 %; Platelet Count 465 k/uL (150-450); RDW 15.8 % (11.5-15.5); WBC 14.5 k/uL (3.8-10.6)
[2018-05-18 01:18] LABS: Amphetamine Screen,Urine Not Detected (NotDetected); Appearance,Urine Cloudy (Clear); Bacteria,Urine Occasional /hpf; Barbiturate Screen,Urine Not Detected (NotDetected); Benzodiazepines Screen,Urine Not Detected (NotDetected); Bilirubin,Urine Negative (Negative); Blood,Urine Negative (Negative); Cocaine Screen,Urine Not Detected (NotDetected); Color,Urine Yellow; Glucose,Urine (UA) Negative (Negative); Ketones,Urine Negative (Negative); Leukocyte Esterase,Urine Large (Negative); Methadone Screen, Urine Not Detected (NotDetected); Mucus,Urine Rare /hpf; Nitrite,Urine Negative (Negative); Opiate Screen,Urine Not Detected (NotDetected); Oxycodone Screen, Urine Not Detected (NotDetected); PH, Urine 6.5 (5.0-8.0); Phencyclidine Screen,Urine Not Detected (NotDetected); Protein,Urine Trace (Negative); RBC,Urine 3 /hpf (0-5); Specific Gravity,Urine 1.014 (1.001-1.035); Squamous Epithelial Cell,Urine 20 /hpf (0-4); Tricyclic Antidepressant,Urine Not Detected (NotDetected); Urn Cannabinoid Scrn Detected (NotDetected); Urobilinogen,Urine <2.0 mg/dL (<2.0); WBC,Urine 9 /hpf (0-5)
[2018-05-18] MEDS ORDERED: ONDANSETRON 4 MG/2 ML VIAL IVP STA (06:09)
--- NOTE | 2018-05-18 06:09 | P.PN ---
Progress Note - Text Progress Note Date: 05/18/18 Please see dictated H&P per Dr. Munoz on this patient's admission. I have met Ravi this morning and reviewed her history. Plan today is to proceed with a repeat low transverse section and bilateral partial salpingectomy. Patient does have a significant history of hemorrhage which she does not completely recall but was done after her last . Patient does request permanent sterilization low she's had no care I feel this is certainly medically appropriate giving her history. I discussed the surgery and risks including risk of increased bleeding like she had last time. All questions are answered and a written consent is obtained.
[2018-05-18] MEDS ORDERED: ePHEDrine SULFATE/0.9% NACL/PF 50 MG/5 ML SYRINGE IV ONE (12:12)
[2018-05-18] MEDS ORDERED: MORPHINE SULFATE (PF) 0.3 MG/0.3 ML SYR ONE (12:12)
[2018-05-18] MEDS ORDERED: OXYTOCIN 10 UNIT/ML 1 ML VIAL ONE (12:12)
[2018-05-18] MEDS ORDERED: ONDANSETRON 4 MG/2 ML VIAL ONE (12:12)
[2018-05-18] MEDS ORDERED: diphenhydrAMINE 50 MG/ML 1 ML VIAL ONE (12:12)
[2018-05-18] MEDS ORDERED: NALBUPHINE 10 MG/ML VIAL (10ML MDV) ONE (12:12)
[2018-05-18] MEDS ORDERED: ONDANSETRON 4 MG/2 ML VIAL IVP PRN (12:42)
[2018-05-18] MEDS ORDERED: NALOXONE 0.4 MG/ML 1 ML VIAL IV PRN (12:42)
[2018-05-18] MEDS ORDERED: diphenhydrAMINE 50 MG/ML 1 ML VIAL IVP PRN (12:42)
[2018-05-18] MEDS ORDERED: MORPHINE SULFATE 4 MG/ML SYRINGE IVP PRN (12:42)
[2018-05-18] MEDS ORDERED: ACETAMINOPHEN TAB 325 MG TAB PO PRN (13:06)
[2018-05-18] MEDS ORDERED: LANOLIN CREAM 5 GM TUBE TOPICAL PRN (13:06)
[2018-05-18] MEDS ORDERED: SIMETHICONE 80 MG CHEWABLE PO PRN (13:06)
[2018-05-18] MEDS ORDERED: METOCLOPRAMIDE 5 MG/ML 2 ML VIAL IVP PRN (13:06)
[2018-05-18] MEDS ORDERED: ZOLPIDEM 5 MG TAB PO PRN (13:06)
[2018-05-18] MEDS ORDERED: OXYTOCIN 20 UNITS/1000 ML NS 1,000 ML IV SCH (13:15)
[2018-05-18] MEDS: FLUCONAZOLE 150 MG TAB PO SCH (14:05)
[2018-05-18] MEDS ORDERED: ceFAZolin 3 GM in SODIUM CHLORIDE 0.9% 100 ML IVPB SCH (16:00)
--- NOTE | 2018-05-18 19:27 | P.OP ---
Date of Procedure: 05/18/18 Preoperative Diagnosis: #1: 39 and one sevenths week . #2: Previous section 2. #3: Gestational hypertension. #4: Multi parity desires permanent sterilization. #5 : No care Postoperative Diagnosis: Same Procedure(s) Performed: #1: Repeat low transverse section. #2: Bilateral partial salpingectomy. Anesthesia: spinal Surgeon: Saleem Aguirre Senior Quality Engineer #1: Lenora Cortés Estimated Blood Loss (ml): 600 Pathology: other (Placenta and bilateral fallopian tube segments) Condition: stable Disposition: floor Indications for Procedure: Please see dictated H&P per Dr. Munoz on this patient's admission. Brief summary this is a 32-year-old multiparous patient who has had no care and has been in and out of the triage area over the last 7 days. Patient had some significant blood pressure elevations on Monday. Preeclampsia labs were normal. Patient is a history of severe preeclampsia and also a history of hemorrhage. It was decided to admit this patient last evening since she is 39 weeks and proceed with delivery at this time. Patient had 2 previous sections and scheduled for repeat and also requested permanent sterilization. Patient understood a tubal ligation is a permanent procedure and that surgery does have risks including risks of infection, bleeding, possible injury bowel, bladder, vessels, and/or other organs. Patient also understands risk of DVT and pulmonary embolism. All the patient's questions were answered written consent was obtained. Operative Findings: This is a viable male Apgars were 8 and 9 delivery time was 1236 hrs. has spontaneous respiration and cry and grossly appeared normal. Description of Procedure: This patient has a Levine catheter placed to straight drain. She subsequently taken to the operating room where she sat up and spinal anesthetic is administered without incident. With an adequate level of anesthesia she has abdominal prep and drape. Scalpels and taken the previous Pfannenstiel incision is incised. A second scalpel is taken down the fascia the fascia scored with a knife. Fascial incision extended bilaterally using the Lozano scissors. Fascia is then dissected off the rectus muscles. Rectus muscles are the peritoneum identified and entered sharply. Peritoneal incision extended superior and inferior without difficulty. The Nabil self-retaining retractor is then placed to the patient's obesity. Scalpels taken a low transverse uterine incision is made. Using a hemostat I into the uterine cavity gently is loss of clear fluid. This incision is extended bilaterally. 's head is then guided through the incision with fundal pressure. Mouth and nares are bulb suctioned. There is a nuchal cord 1. Then we deliver the rest this infant's body. This is a vigorous viable male infant Apgars are 8 and 9 delivery time was 1236 hrs. After delivery of the infant the umbilical cord is doubly clamped and cut appears to be trivascular. Placenta is then manually extracted intact. Uterus is then externalized and uterine incision demarcated with Oleary clamps. Uterine incision then closed using 0 Vicryl running locked fashion. Excellent hemostasis is noted. Then turned my attention to the left fallopian tube approximately 4 cm from its cornual insertion make a small window the mesial salpinx with Bovie cautery. Using 2-0 silk I doubly ligate a 2 cm segment of the tube and the segment is excised and handed off to pathology. Cauterization done of the tubal ends. Similar technique on the right side in similar results. With excellent hemostasis noted excess fluid is removed from the abdomen and pelvis uterus placed back into the abdomen. I do a final inspection of the incision and tubal incisions and Allis hemostatic. The peritoneum was then closed using 0 Vicryl running fashion. Rectus muscles reapproximated 0 Vicryl interrupted fashion. Fascia is then closed using 0 PDS. Fascial incision is intact and hemostatic. Subcutaneous tissues and closed using a 3-0 Vicryl running fashion. Skin is and closed using dina. All counts are correct 3. There are no complications. and mother stable in the operating room and taken to the birthing suite in satisfactory condition.
[2018-05-18] MEDS: LACTATED RINGERS 1,000 ML IV SCH ×2 (19:41→20:43)
[2018-05-18] MEDS: SENNOSIDES-DOCUSATE SODIUM 1 EACH TAB PO SCH (19:44)
[2018-05-19] MEDS: KETOROLAC 30 MG/ML 1 ML VIAL IVP PRN ×2 (02:33→11:56)
[2018-05-19] MEDS: LACTATED RINGERS 1,000 ML IV SCH (04:29)
--- NOTE | 2018-05-19 07:34 | P.PNOBGPC ---
Subjective - Subjective Patient reports: Reports appetite normal, Reports voiding normally, Reports pain well controlled, Reports ambulating normally : doing well Objective - Vital Signs Latest vital signs: Vital Signs Temp Pulse Resp BP Pulse Ox 05/19/18 07:00 16 05/19/18 05:00 16 05/19/18 04:00 98.4 F 66 16 90/48 05/19/18 03:00 16 05/19/18 01:00 16 05/19/18 00:00 98.3 F 68 18 107/54 98 05/18/18 23:00 98.3 F 68 18 107/54 98 05/18/18 21:00 18 05/18/18 20:00 97.9 F 72 18 106/56 98 05/18/18 19:00 97.9 F 72 18 106/56 98 05/18/18 16:49 16 05/18/18 15:57 68 16 117/64 05/18/18 15:42 16 05/18/18 15:10 98.3 F 65 16 118/71 05/18/18 14:34 64 16 104/55 05/18/18 14:09 98.1 F 62 16 105/56 05/18/18 13:54 60 16 104/59 05/18/18 13:42 16 99 05/18/18 13:40 65 16 109/60 05/18/18 13:25 65 16 105/51 05/18/18 13:10 69 16 132/54 05/18/18 12:42 16 93 L Intake and Output 05/18/18 05/19/18 05/19/18 22:59 06:59 14:59 Intake Total 50 Output Total 700 115 Balance -700 -65 Intake: IV 50 ceFAZolin 3 gm In Sodium 50 Chloride 0.9% 50 ml @ 50 mls/hr IVPB ONCE ONE Rx#: [id number] Output: Urine 700 115 Uretheral (Levine) 300 Other: # Voids 1 - Exam Lungs: bilateral: normal Chest: Normal S1, Normal S2 Extremities: Present: normal Abdomen: Present: normal appearance, soft. Absent: distention, tenderness Incision: Present: normal, dry, intact Uterus: Present: normal, firm Assessment and Plan Assessment: Post operative day #1. Patient is resting without complaints. Vital signs are stable and she is afebrile. Uterus is firm nontender she's having normal lochia. Her incision is intact and dry. Plan today is to check CBC, advanced to a regular diet, encourage ambulation, and continue routine postoperative care. director field services has been notified and apparently patient has an open CPS case and therefore they will address this issue apparently on Monday. (1) delivery delivered Current Visit: Yes Status: Acute Code(s): O82 - ENCOUNTER FOR DELIVERY WITHOUT INDICATION SNOMED Code(s): 855191099 (2) Gestational hypertension Current Visit: Yes Status: Acute Code(s): O13.9 - GESTATIONAL HTN W/O SIGNIFICANT PROTEINURIA, UNSP TRIMESTER SNOMED Code(s): 771422443 (3) No care in current Current Visit: Yes Status: Acute Code(s): O09.30 - SUPRVSN OF PREG W INSUFFICIENT ANTENAT CARE, UNSP TRIMESTER SNOMED Code(s): 8200956528180
--- NOTE | 2018-05-19 08:22 | P.PN ---
Progress Note - Text Date: 05/19/2018 Time: 800 The patient is status post section Vital signs stable VAS:0-10 Patient has no complaints of pain. The patient incurred some minimal itching yesterday, this itching is now subsiding. Pain meds to be managed by service.
[2018-05-19] MEDS: SENNOSIDES-DOCUSATE SODIUM 1 EACH TAB PO SCH ×2 (09:19→19:35)
[2018-05-19] MEDS: IRON AG/C/B12/CA/SUC.ACID/STOM 1 EACH TAB PO SCH (09:21)
[2018-05-19] MEDS: FLUCONAZOLE 150 MG TAB PO SCH (09:21)
[2018-05-19 09:22] LABS: Basophils % (A) 0 %; Eosinophils # (A) 0.1 k/uL (0-0.7); Eosinophils % (A) 1 %; HCT 27.7 % (34.0-46.0); HGB 9.1 gm/dL (11.4-16.0); Lymphocytes # (A) 1.8 k/uL (1.0-4.8); Lymphocytes % (A) 16 %; MCH 27.9 pg (25.0-35.0); MCV 84.3 fL (80.0-100.0); Mean Platelet Volume 7.5; Monocytes # (A) 0.7 k/uL (0-1.0); Monocytes % (A) 7 %; Neutrophils # (A) 8.4 k/uL (1.3-7.7); Neutrophils % (A) 75 %; Platelet Count 433 k/uL (150-450); RBC 3.28 m/uL (3.80-5.40); RDW 15.5 % (11.5-15.5); WBC 11.3 k/uL (3.8-10.6)
[2018-05-19] MEDS: HYDROcodone/APAP 5-325MG 1 EACH TAB PO PRN ×2 (18:17→22:54)
[2018-05-20 00:41] VITALS: RESP 16
[2018-05-20] MEDS: IBUPROFEN 600 MG TAB PO PRN ×3 (02:15→22:50)
[2018-05-20] MEDS: FLUCONAZOLE 150 MG TAB PO SCH (07:42)
--- NOTE | 2018-05-20 07:42 | P.PNOBGPC ---
Subjective - Subjective Patient reports: Reports appetite normal, Reports voiding normally, Reports pain well controlled, Reports ambulating normally : doing well Objective - Vital Signs Latest vital signs: Vital Signs Temp Pulse Resp BP BP Pulse Ox 05/20/18 00:00 98.4 F 69 16 110/64 97 05/19/18 16:00 98.6 F 74 14 113/62 05/19/18 12:00 98.5 F 69 14 116/57 05/19/18 08:16 98.8 F 73 16 85/40 96 Intake and Output 05/19/18 05/20/18 05/20/18 22:59 06:59 14:59 Other: Voiding Method Toilet # Voids 2 1 - Exam Lungs: bilateral: normal Chest: Normal S1, Normal S2 Extremities: Present: normal Abdomen: Present: normal appearance, soft. Absent: distention, tenderness Incision: Present: normal, dry, intact Uterus: Present: normal, firm - Labs Labs: Abnormal Lab Results - Last 24 Hours (Table) 05/19/18 Range/Units 09:03 WBC 11.3 H (3.8-10.6) k/uL RBC 3.28 L (3.80-5.40) m/uL Hgb 9.1 L (11.4-16.0) gm/dL Hct 27.7 L (34.0-46.0) % Neutrophils # 8.4 H (1.3-7.7) k/uL Assessment and Plan Assessment: Postoperative day #2. Patient is resting without new complaints. Vital signs are stable and she is afebrile. Uterus is firm nontender and her incision is intact and dry. Hemoglobin yesterday was 9.1 which is appropriate drop from her preoperative hemoglobin. Patient's ambulating and urinating without difficulty. Plan today is to continue routine care and discharge home later tomorrow. (1) delivery delivered Current Visit: Yes Status: Acute Code(s): O82 - ENCOUNTER FOR DELIVERY WITHOUT INDICATION SNOMED Code(s): 557468399 (2) Gestational hypertension Current Visit: Yes Status: Acute Code(s): O13.9 - GESTATIONAL HTN W/O SIGNIFICANT PROTEINURIA, UNSP TRIMESTER SNOMED Code(s): 405897451 (3) No care in current Current Visit: Yes Status: Acute Code(s): O09.30 - SUPRVSN OF PREG W INSUFFICIENT ANTENAT CARE, UNSP TRIMESTER SNOMED Code(s): 4545388995036
[2018-05-20] MEDS: IRON AG/C/B12/CA/SUC.ACID/STOM 1 EACH TAB PO SCH (07:43)
[2018-05-20] MEDS: SENNOSIDES-DOCUSATE SODIUM 1 EACH TAB PO SCH ×2 (07:44→19:55)
[2018-05-20] MEDS: HYDROcodone/APAP 5-325MG 1 EACH TAB PO PRN ×2 (07:44→17:01)
[2018-05-21] MEDS: HYDROcodone/APAP 5-325MG 1 EACH TAB PO PRN (03:56)
--- NOTE | 2018-05-21 06:22 | P.PNOBGPC ---
Subjective - Subjective Patient reports: Reports appetite normal, Reports voiding normally, Reports pain well controlled, Reports ambulating normally : doing well Objective - Vital Signs Latest vital signs: Vital Signs Temp Pulse Resp BP BP Pulse Ox 05/21/18 00:00 98.2 F 68 16 118/78 99 05/20/18 16:00 98.1 F 67 16 123/75 05/20/18 07:57 98.1 F 69 16 114/63 Intake and Output 05/20/18 05/20/18 05/21/18 14:59 22:59 06:59 Other: # Voids 1 1 1 - Exam Lungs: bilateral: normal Chest: Normal S1, Normal S2 Extremities: Present: normal Abdomen: Present: normal appearance, soft. Absent: distention, tenderness Incision: Present: normal, dry, intact Uterus: Present: normal, firm Assessment and Plan Assessment: Postoperative day #3. Patient is resting without complaints. Uterus is firm nontender and her incision is intact and dry. My impression is a normal postoperative course. Plan is to continue routine postoperative care discharge home later today after seen by CPS. (1) delivery delivered Current Visit: Yes Status: Acute Code(s): O82 - ENCOUNTER FOR DELIVERY WITHOUT INDICATION SNOMED Code(s): 132365033 (2) Gestational hypertension Current Visit: Yes Status: Acute Code(s): O13.9 - GESTATIONAL HTN W/O SIGNIFICANT PROTEINURIA, UNSP TRIMESTER SNOMED Code(s): 824623949 (3) No care in current Current Visit: Yes Status: Acute Code(s): O09.30 - SUPRVSN OF PREG W INSUFFICIENT ANTENAT CARE, UNSP TRIMESTER SNOMED Code(s): 0318411010109
--- NOTE | 2018-05-21 06:36 | P.DS ---
Providers Date of admission: 05/17/18 23:37 Expected date of discharge: 05/21/18 Attending physician: Juan Munoz Primary care physician: Juan Munoz - Discharge Diagnosis(es) (1) delivery delivered Current Visit: Yes Status: Acute (2) Gestational hypertension Current Visit: Yes Status: Acute (3) No care in current Current Visit: Yes Status: Acute Hospital Course: Please see dictated H&P for intimate details of this patient's admission brief summary this is a 32-year-old 5 para 3 female 39 and one sevenths weeks gestation admitted by Dr. Munoz for repeat section and tubal ligation for gestational hypertension, and no care. Patient had above- named surgeries. Please see dictated operative note. Postoperative 3 patient' s felt stable for discharge home follow up in 1 week. Procedures: Repeat low transverse section and bilateral salpingectomy Patient Condition at Discharge: Good Plan - Discharge Summary New Discharge Prescriptions: New HYDROcodone/APAP 5-325MG [[place] 5-325] 1 each PO Q4HR PRN #18 tab PRN Reason: Moderate Pain Ibuprofen [Motrin] 600 mg PO Q6HR PRN #40 tab PRN Reason: Mild Pain Or Fever >= 100.5 No Action Pnv No.95/Ferrous Fum/Folic AC [ Multivitamin Tablet] 2 tab PO DAILY Acetaminophen Tab [Tylenol Tab] 325 mg PO Q6H PRN PRN Reason: Pain Calcium Carbonate [Tums] 1,000 mg PO 5XD PRN PRN Reason: Heartburn Discharge Medication List Pnv No.95/Ferrous Fum/Folic AC [ Multivitamin Tablet] 2 tab PO DAILY [History] Acetaminophen Tab [Tylenol Tab] 325 mg PO Q6H PRN 05/17/18 [History] Calcium Carbonate [Tums] 1,000 mg PO 5XD PRN 05/17/18 [History] HYDROcodone/APAP 5-325MG [[place] 5-325] 1 each PO Q4HR PRN #18 tab 05/21/18 [Rx] Ibuprofen [Motrin] 600 mg PO Q6HR PRN #40 tab 05/21/18 [Rx] Follow up Appointment(s)/Referral(s): Saleem Aguirre MD [STAFF PHYSICIAN] - 1 Week Patient Instructions/Handouts: (DC) Activity/Diet/Wound Care/Special Instructions: No heavy lifting or strenuous activity for 6 weeks. No intercourse or anything per vagina for 6 weeks. Please call if any fever, chills, excessive vaginal bleeding, and/or abdominal pain. Discharge Disposition: HOME SELF-CARE
[2018-05-21] MEDS: FLUCONAZOLE 150 MG TAB PO SCH (07:35)
[2018-05-21] MEDS: SENNOSIDES-DOCUSATE SODIUM 1 EACH TAB PO SCH (07:35)
[2018-05-21] MEDS: IRON AG/C/B12/CA/SUC.ACID/STOM 1 EACH TAB PO SCH (07:36)
[2018-05-21] MEDS: IBUPROFEN 600 MG TAB PO PRN (07:36)
[2018-05-21 07:50] VITALS: BP 108/42; PULSE 64; TEMP 97.4
== END 2018-05-21 12:35 | disposition home or self-care (01) | DRG 765 ==
LOC: FBPOP 10:35 → 4FBP 23:37
PROVIDERS: ADMIT Obstetrics & Gynecology; ATTEND Obstetrics & Gynecology
PROC: 0UB70ZZ Excision of Bilateral Fallopian Tubes, Open Approach (ICD-10-PCS; 2018-05-18)
PROC: 10D00Z1 Extraction of Products of Conception, Low, Open Approach (ICD-10-PCS; principal; 2018-05-18 12:00)
DX: O34.211 Maternal care for low transverse scar from previous cesarean delivery (principal); Z68.43 Body mass index [BMI] 50.0-59.9, adult; E66.01 Morbid (severe) obesity due to excess calories; O99.214 Obesity complicating childbirth; O13.4 Gestational [pregnancy-induced] hypertension without significant proteinuria, complicating childbirth; O99.334 Smoking (tobacco) complicating childbirth; O99.52 Diseases of the respiratory system complicating childbirth; N85.8 Other specified noninflammatory disorders of uterus; Z3A.39 39 weeks gestation of pregnancy; Z37.0 Single live birth; J45.909 Unspecified asthma, uncomplicated; Z30.2 Encounter for sterilization; F17.210 Nicotine dependence, cigarettes, uncomplicated; Z79.899 Other long term (current) drug therapy; Z88.1 Allergy status to other antibiotic agents
CPT/HCPCS: 59025; 80306; 81001; 82565; 83615; 84450; 84460; 84520; 84550; 85025; 85384; 85610; 85730; 86850; 86870; 86880; 86900; 86901; 88302; 88307; 99213

== ENCOUNTER 2020-03-19 15:20 | Emergency (ER) | payer OTHER ==
[2020-03-19 15:31] VITALS: RESP 18; TEMP 98.9
[2020-03-19] MEDS ORDERED: LIDOCAINE 1% INJ 10MG/ML (20 ML MDV) SQ ONE (15:44)
--- NOTE | 2020-03-19 15:54 | ED ---
Wound/Laceration HPI - General Chief Complaint: Wound/Laceration Stated Complaint: ear laceration Time Seen by Provider: 03/19/20 15:32 Source: patient, RN notes reviewed, old records reviewed Mode of arrival: wheelchair Limitations: no limitations - History of Present Illness Initial Comments: Patient is a 34-year-old female present the emergency department today for a laceration over her left ear pinna. Patient reportedly slipped on water in her bathroom and fell hitting her left ear on the side of a window. Patient complains of a laceration to the pinna nothing else.She was wearing a pinna earring. She denies LOC or neck pain. - Related Data Home Medications Medication Instructions Recorded Confirmed Pnv No.95/Ferrous Fum/Folic AC 2 tab PO DAILY 12/15/17 05/17/18 [ Multivitamin Tablet] Acetaminophen Tab [Tylenol Tab] 325 mg PO Q6H PRN 05/17/18 05/17/18 Calcium Carbonate [Tums] 1,000 mg PO 5XD PRN 05/17/18 05/17/18 Previous Rx's Medication Instructions Recorded HYDROcodone/APAP 5-325MG [[place] 1 each PO Q4HR PRN #18 tab 05/21/18 5-325] Ibuprofen [Motrin] 600 mg PO Q6HR PRN #40 tab 05/21/18 Cephalexin [Keflex] 500 mg PO Q8HR #21 cap 03/19/20 Allergies Allergy/AdvReac Type Severity Reaction Status Date / Time azithromycin Allergy Rash/Hives Verified 03/19/20 15:31 neomycin Allergy Rash/Hives Verified 03/19/20 15:31 Review of Systems ROS Statement: Those systems with pertinent positive or pertinent negative responses have been documented in the HPI. ROS Other: All systems not noted in ROS Statement are negative. Past Medical History Past Medical History: Asthma History of Any Multi-Drug Resistant Organisms: None Reported Past Surgical History: Adenoidectomy, Section, Tonsillectomy Additional Past Surgical History / Comment(s): tubes in ear, left ankle surgery, right foot Past Anesthesia/Blood Transfusion Reactions: No Reported Reaction Past Psychological History: Anxiety, Depression Smoking Status: Current every day smoker Past Alcohol Use History: None Reported Past Drug Use History: Marijuana - Past Family History Mother Family Medical History: No Reported History General Exam - General Exam Comments Initial Comments: 34 year old female, alert and oriented. Limitations: no limitations General appearance: alert, in no apparent distress Head exam: Present: atraumatic, normocephalic, normal inspection Eye exam: Present: normal appearance, PERRL, EOMI. Absent: scleral icterus, conjunctival injection, periorbital swelling ENT exam: Present: mucous membranes moist, other (3cm laceration around anterior and posterior left ear pinna with cartiledge laceration. Abrasion behind left pinna). Absent: normal exam Neck exam: Present: normal inspection. Absent: tenderness, meningismus, lymphadenopathy Course Vital Signs 03/19/20 03/19/20 15:28 18:00 Temperature 98.9 F Pulse Rate 115 H 71 Respiratory 18 18 Rate Blood Pressure 155/99 112/86 O2 Sat by Pulse 96 99 Oximetry Procedures - Laceration Laceration #1 Indication: laceration Site: other (left ear pinna) Size (cm): 3 Description: irregular Depth: [id number] Anesthetic Used: lidocaine 1% Anesthesia Technique: nerve block (auricular block) Amount (mls): 8 Type of Sutures: nylon, vicryl Size of Sutures: 5-0, 6-0 Number of Sutures: 13 (4 internal suture on cartlidge and 9 external) Technique: simple, interrupted Patient Tolerated Procedure: well, no complications Medical Decision Making - Medical Decision Making 34 year old female with left ear laceration after slipping in bathroom today. Laceration involves cartlidge and is in the anterior and posterior pinna and upper eariring was intact and dangling near the area of detachment. Discussed with Dr. Booker whom will not come into ED, and will follow up after repair in office. Laceration was cleaned and closed to the best of my ability. Discussed putting patient on antibiotics and ENT follow up. Discussed return parameters. Disposition Clinical Impression: Laceration of left pinna Disposition: HOME SELF-CARE Condition: Good Instructions (If sedation given, give patient instructions): Laceration (ED) Additional Instructions: Please return to the emergency room in 8-10 days to have sutures removed. Follow-up with the ENT this week or on Monday. Please leave wound covered for the first 24-48 hours and then leave open to air after that time. Please use clean soap and water to clean the suture area to prevent scabbing over the top of your sutures. Please watch for any signs of infection which may include but not limited to increased pain, swelling, redness, fever or chills. Please return to the emergency room if any signs of infection do occur. Please return to the emergency room for any other concerns or complications. Prescriptions: Cephalexin [Keflex] 500 mg PO Q8HR #21 cap Is patient prescribed a controlled substance at d/c from ED?: No Referrals: Lalito Babcock MD [Primary Care Provider] - 1-2 days Amandeep Ortiz MD [STAFF PHYSICIAN] - 1-2 days Time of Disposition: 17:37
[2020-03-19] MEDS ORDERED: IBUPROFEN 600 MG STARTER PACK 4 TAB BTL PO STA (15:55)
[2020-03-19] MEDS ORDERED: HYDROcodone/APAP 5-325MG 1 EACH TAB PO STA (15:55)
[2020-03-19] MEDS ORDERED: CEPHALEXIN 500MG STARTER PACK 4 CAP BTL PO STA (17:51)
[2020-03-19] MEDS ORDERED: ACET/COD 300 MG/30 MG STARTER PACK 6 TAB BTL PO STA (17:52)
[2020-03-19 18:02] VITALS: BP 112/86; PULSE 71
== END 2020-03-19 18:00 | disposition home or self-care (01) ==
LOC: EC 15:20
DX: S01.312A Laceration without foreign body of left ear, initial encounter (principal); F17.200 Nicotine dependence, unspecified, uncomplicated; Z88.1 Allergy status to other antibiotic agents; W01.198A Fall on same level from slipping, tripping and stumbling with subsequent striking against other object, initial encounter; Y93.89 Activity, other specified; Y92.002 Bathroom of unspecified non-institutional (private) residence as the place of occurrence of the external cause
CPT/HCPCS: 99283; 12013; J2001

== ENCOUNTER 2020-08-15 09:05 | Emergency (ER) | payer OTHER ==
[2020-08-15 09:10] VITALS: BP 131/76; PULSE 84; RESP 18; TEMP 99.2
[2020-08-15] MEDS ORDERED: FLUORESCEIN STRIPS 1 MG STRIP BOTH EYES ONE (09:22)
[2020-08-15] MEDS ORDERED: PROPARACAINE 0.5% OPHTH DROPS 15 ML BTL BOTH EYES SCH (09:30)
[2020-08-15] MEDS ORDERED: OFLOXACIN 0.3% OPHTH DROPS 5 ML BOTTLE LEFT EYE STA (09:35)
[2020-08-15] MEDS ORDERED: AMOXIC-POT CLAV 875MG STARTER PACK 2 TAB BTL PO STA (09:46)
[2020-08-15] MEDS ORDERED: PROPARACAINE 0.5% OPHTH DROPS 15 ML BTL BOTH EYES STA (09:48)
--- NOTE | 2020-08-15 10:10 | ED ---
Eye Problem HPI - General Chief complaint: Eye Problems Stated complaint: Eye issues Time Seen by Provider: 08/15/20 09:17 Source: patient, RN notes reviewed, old records reviewed Mode of arrival: ambulatory Limitations: no limitations - History of Present Illness Initial comments: Patient is a 34-year-old female who presents emergency department today for left eye irritation drainage. Patient reports she is symptoms started this week. She reports that yellow purulent drainage. She reports that she woke up with her eye swollen shut chest is a wash cloth to open it. Patient states that she's had no fevers or chills. She denies any pain with eye movements. She does wear glasses. Denies change in visual acuity. - Related Data Home Medications Medication Instructions Recorded Confirmed Pnv No.95/Ferrous Fum/Folic AC 2 tab PO DAILY 12/15/17 05/17/18 [ Multivitamin Tablet] Acetaminophen Tab [Tylenol Tab] 325 mg PO Q6H PRN 05/17/18 05/17/18 Calcium Carbonate [Tums] 1,000 mg PO 5XD PRN 05/17/18 05/17/18 Previous Rx's Medication Instructions Recorded HYDROcodone/APAP 5-325MG [[place] 1 each PO Q4HR PRN #18 tab 05/21/18 5-325] Ibuprofen [Motrin] 600 mg PO Q6HR PRN #40 tab 05/21/18 Cephalexin [Keflex] 500 mg PO Q8HR #21 cap 03/19/20 Cephalexin [Keflex] 500 mg PO Q8HR #21 cap 08/15/20 Ofloxacin 0.3% Ophth Soln [Ocuflox 1 - 2 drops LEFT EYE Q4H #1 bottle 08/15/20 Ophth Soln] Allergies Allergy/AdvReac Type Severity Reaction Status Date / Time azithromycin Allergy Rash/Hives Verified 08/15/20 09:10 neomycin Allergy Rash/Hives Verified 08/15/20 09:10 Review of Systems ROS Statement: Those systems with pertinent positive or pertinent negative responses have been documented in the HPI. ROS Other: All systems not noted in ROS Statement are negative. Past Medical History Past Medical History: Asthma History of Any Multi-Drug Resistant Organisms: None Reported Past Surgical History: Adenoidectomy, Section, Tonsillectomy Additional Past Surgical History / Comment(s): tubes in ear, left ankle surgery, right foot Past Anesthesia/Blood Transfusion Reactions: No Reported Reaction Past Psychological History: Anxiety, Depression Smoking Status: Current every day smoker Past Alcohol Use History: None Reported Past Drug Use History: Marijuana - Past Family History Mother Family Medical History: No Reported History General Exam - General Exam Comments Initial Comments: His is a 34-year-old female \ Alert and oriented 3. No distress. Limitations: no limitations Head exam: Present: atraumatic, normocephalic, normal inspection Eye exam: Present: normal appearance, PERRL, EOMI, conjunctival injection, other ( has significant left eye conjunctival injection and drainage.). Absent: scleral icterus, periorbital swelling ENT exam: Present: normal exam, mucous membranes moist Neck exam: Present: normal inspection. Absent: tenderness, meningismus, lymphadenopathy Respiratory exam: Present: normal lung sounds bilaterally. Absent: respiratory distress, wheezes, rales, rhonchi, stridor Cardiovascular Exam: Present: regular rate, normal rhythm, normal heart sounds. Absent: systolic murmur, diastolic murmur, rubs, gallop, clicks GI/Abdominal exam: Present: soft, normal bowel sounds. Absent: distended, tenderness, guarding, rebound, rigid Extremities exam: Present: normal inspection, full ROM, normal capillary refill. Absent: tenderness, pedal edema, joint swelling, calf tenderness Back exam: Present: normal inspection Neurological exam: Present: alert, oriented X3, CN II-XII intact Psychiatric exam: Present: normal affect, normal mood Skin exam: Present: warm, dry, intact, normal color. Absent: rash Course Vital Signs 08/15/20 09:06 Temperature 99.2 F Pulse Rate 84 Respiratory 18 Rate Blood Pressure 131/76 O2 Sat by Pulse 100 Oximetry Medical Decision Making - Medical Decision Making Patient is a 34-year-old female presents with 4 days of left eye or rotation redness and drainage. She is evidence of left eye conjunctivitis. She does have some surrounding swelling around upper eyelid. No pain with extra ocular eye movements. Fluorescein eye exam was performed and shows no signs of ulceration. She denies any eye pain just drainage. Patient will be started on antibiotic eyedrops and advised close follow-up with ophthalmology. Discussed return parameters. Disposition Clinical Impression: Conjunctivitis Disposition: HOME SELF-CARE Condition: Good Additional Instructions: Patient advised t to apply the antibiotic drops every 4 hours. Rest avoid touching the eye. Take the antibiotic as prescribed as well. Return to emergency department if any alarming signs or symptoms occur. Recommended following up with ophthalmology this week Prescriptions: Cephalexin [Keflex] 500 mg PO Q8HR #21 cap Ofloxacin 0.3% Ophth Soln [Ocuflox Ophth Soln] 1 - 2 drops LEFT EYE Q4H #1 bottle Is patient prescribed a controlled substance at d/c from ED?: No Referrals: Lalito Babcock MD [Primary Care Provider] - 1-2 days Devon Orozco MD [STAFF PHYSICIAN] - 1-2 days Time of Disposition: 10:10
== END 2020-08-15 10:34 | disposition home or self-care (01) ==
LOC: EC 09:05
DX: H10.9 Unspecified conjunctivitis (principal); F17.200 Nicotine dependence, unspecified, uncomplicated; Z88.1 Allergy status to other antibiotic agents
CPT/HCPCS: 87070; 87205; 99284